=== PATIENT | female | born 1995 | race Caucasian/White ===

== ENCOUNTER → 2020-11-12 | Outpatient (CLI) | payer OTHER | LOC: HEART CORB 11:25 | DX: R00.2 Palpitations (principal); R00.0 Tachycardia, unspecified ==

== ENCOUNTER → 2020-11-19 | Outpatient (CLI) | payer OTHER | LOC: HEART CORB 12:59 | DX: I10 Essential (primary) hypertension (principal); R00.2 Palpitations; R00.0 Tachycardia, unspecified | CPT/HCPCS: 93306 ==

== ENCOUNTER 2022-03-19 17:42 | Emergency (ER) | payer OTHER ==
[2022-03-19 19:42] LABS: HEMOGLOBIN 12.9 gm/dl (12.3-15.3); RED BLOOD COUNT 4.64 M/UL (4.00-5.10); WHITE BLOOD COUNT 10.1 K/UL (4.5-11.0)
[2022-03-19 20:15] LABS: BUN/CREATININE RATIO 13 (0-10)
== END 2022-03-19 22:09 | disposition home or self-care (01) ==
LOC: ER1 17:42
PROVIDERS: Physician Assistant
DX: R10.9 Unspecified abdominal pain (principal); R11.2 Nausea with vomiting, unspecified; R50.9 Fever, unspecified; Z88.5 Allergy status to narcotic agent; F17.290 Nicotine dependence, other tobacco product, uncomplicated
CPT/HCPCS: 80053; 81001; 83690; 84703; 85025; 96365; 96366; 99284; J1885; Q9967